=== PATIENT | male | born 1955 | race Caucasian/White ===

== ENCOUNTER 2018-09-25 05:34 | Inpatient (IN) | payer OTHER | END 2018-09-27 10:50 | disposition home or self-care (01) | LOC: PAS IN 05:34 → ORTHO 4S 10:50 | PROC: 0SRD0J9 Replacement of Left Knee Joint with Synthetic Substitute, Cemented, Open Approach (ICD-10-PCS; principal; 2018-09-25 07:01) | DX: M17.12 Unilateral primary osteoarthritis, left knee (principal) ==

== ENCOUNTER 2021-10-04 19:14 | Emergency (ER) | payer MEDICARE ==
[~2021-10-04] VITALS: Ht 185.4 cm; Wt 124.1 kg
[~2021-10-04 19:14] MED LIST: ASPI-1 PO
[2021-10-04 20:34] LABS: BASOPHILS # (AUTO) 0.1 X10'3 (0-0.2); BASOPHILS % (AUTO) 0.7 % (0-1); EOSINOPHILS # (AUTO) 0.1 X10'3 (0-0.9); EOSINOPHILS % (AUTO) 0.7 % (0-6); HEMATOCRIT 49.3 % (42.0-52.0); HEMOGLOBIN 16.2 g/dl (14.0-17.9); LYMPHOCYTES # (AUTO) 0.8 X10'3 (1.1-4.8); LYMPHOCYTES % (AUTO) 6.5 % (21-51); MEAN CORPUSCULAR HEMOGLOBIN 27.7 PG (27.0-31.0); MEAN CORPUSCULAR HGB CONC 32.9 g/dL (33.0-36.5); MEAN CORPUSCULAR VOLUME 84.1 FL (78-98); MONOCYTES # (AUTO) 1.1 X10'3 (0-0.9); MONOCYTES % (AUTO) 9.3 % (2-12); NEUTROPHILS # (AUTO) 9.8 X10'3 (1.8-7.7); NEUTROPHILS % (AUTO) 82.8 % (42-75); PLATELET COUNT 231 X10'3 (140-440); RED BLOOD COUNT 5.87 X10'6 (4.70-6.10); RED CELL DISTRIBUTION WIDTH 14.1 % (11.5-14.5); WHITE BLOOD COUNT 11.8 X10'3 (4.5-11.0)
[2021-10-04 21:08] LABS: ALANINE AMINOTRANSFERASE 32 U/L (12-78); ALKALINE PHOSPHATASE 87 IU/L (46-116); ANION GAP 13 (8-16); ASPARTATE AMINO TRANSFERASE 20 U/L (10-37); BILIRUBIN,TOTAL 0.9 MG/DL (0.1-1.0); BLOOD UREA NITROGEN 15 MG/DL (7-18); CALCIUM 9.1 MG/DL (8.5-10.1); CHLORIDE 100 MMOL/L (99-107); CREATININE 1.36 MG/DL (0.60-1.10); GLUCOSE 172 MG/DL (70-104); POTASSIUM 4.3 MMOL/L (3.5-5.1); SODIUM 136 MMOL/L (135-145); TOTAL CARBON DIOXIDE 23.4 MMOL/L (24-32); TOTAL PROTEIN 8.1 G/DL (6.4-8.2); eGFR 52 ML/MIN
[2021-10-04] MEDS ORDERED: normal saline 1000ml 1,000 ML IV ONE (22:45)
[2021-10-04] MEDS ORDERED: BENZ-38 PO (23:54)
[2021-10-04] MEDS ORDERED: SODI30SP3 BOTHNARES (23:54)
[2021-10-04] MEDS ORDERED: ALBU8HFA PO (23:54)
[2021-10-04 23:58] LABS: CLARITY,URINE CLEAR (Clear); COLOR,URINE YELLOW (Yellow); GLUCOSE, URINE NEGATIVE (Neg); KETONES,URINE NEGATIVE (Neg); LEUKOCYTE ESTERASE ,URINE NEGATIVE (Neg); NITRITES, URINE NEGATIVE (Neg); OCCULT BLOOD,URINE NEGATIVE (Neg); PH,URINE 6.5 (4.8-8.0); PROTEIN,URINE NEGATIVE (Neg)
[2021-10-05 00:03] LABS: UA COLLECTION TYPE NON-SPECIFIED
[2021-10-05 00:20] VITALS: BP 124/84
== END 2021-10-05 00:21 | disposition home or self-care (01) ==
LOC: ER 19:15
DX: J11.1 Influenza due to unidentified influenza virus with other respiratory manifestations (principal); Z20.822 Contact with and (suspected) exposure to COVID-19; I48.91 Unspecified atrial fibrillation; Z87.81 Personal history of (healed) traumatic fracture; Z88.8 Allergy status to other drugs, medicaments and biological substances; Z79.82 Long term (current) use of aspirin; Z79.899 Other long term (current) drug therapy
CPT/HCPCS: 36415; 71045; 80053; 81003; 83605; 83880; 84145; 84484; 85025; 87040; 87502; 87503; 87635; 93005; 96360; 99285; C9803; J7030

== ENCOUNTER 2024-09-28 08:32 | Inpatient (IN) | payer OTHER, MEDICARE ==
[~2024-09-28] VITALS: Ht 185.4 cm; Wt 123.3 kg
[~2024-09-28 08:32] MED LIST changes: +SODI30SP3 BOTHNARES
--- NOTE | 2024-09-28 09:19 | RADIOLOGY REPORT ---
CHEST RADIOGRAPH Indication: SOB Technique: Single frontal view of the chest was obtained COMPARISON: None FINDINGS: Lines and Tubes: None Lungs: Clear Pleura: No effusion. No pneumothorax. Cardiomediastinal contours: Unremarkable Bones: Unremarkable IMPRESSION: 1. No acute disease.
[2024-09-28 09:21] LABS: BASOPHILS # (AUTO) 0.1 X10'3 (0-0.2); BASOPHILS % (AUTO) 0.7 % (0-1); EOSINOPHILS # (AUTO) 0.1 X10'3 (0-0.9); EOSINOPHILS % (AUTO) 0.7 % (0-6); HEMATOCRIT 49.3 % (42.0-52.0); HEMOGLOBIN 16.4 g/dl (14.0-17.9); LYMPHOCYTES # (AUTO) 1.1 X10'3 (1.1-4.8); LYMPHOCYTES % (AUTO) 10.7 % (21-51); MEAN CORPUSCULAR HEMOGLOBIN 28.1 PG (27.0-31.0); MEAN CORPUSCULAR HGB CONC 33.3 g/dL (33.0-36.5); MEAN CORPUSCULAR VOLUME 84.4 FL (78-98); MEAN PLATELET VOLUME 9.7 FL (7.4-10.4); MONOCYTES # (AUTO) 1.3 X10'3 (0-0.9); MONOCYTES % (AUTO) 12.4 % (2-12); NEUTROPHILS # (AUTO) 8.1 X10'3 (1.8-7.7); NEUTROPHILS % (AUTO) 75.5 % (42-75); PLATELET COUNT 203 X10'3 (140-440); RED BLOOD COUNT 5.84 X10'6 (4.70-6.10); RED CELL DISTRIBUTION WIDTH 14.7 % (11.5-14.5); WHITE BLOOD COUNT 10.7 X10'3 (4.5-11.0)
[2024-09-28 09:25] LABS: ALBUMIN 3.7 G/DL (3.4-5.0); ANION GAP 10 (8-16); BLOOD UREA NITROGEN 15 MG/DL (7-18); BUN/CREATININE RATIO 12.7 (10.0-20.0); CALCIUM 8.8 MG/DL (8.5-10.1); CHLORIDE 101 MMOL/L (99-107); CREATININE 1.18 MG/DL (0.60-1.10); GLUCOSE 141 MG/DL (70-104); POTASSIUM 4.4 MMOL/L (3.5-5.1); SODIUM 136 MMOL/L (135-145); TOTAL CARBON DIOXIDE 25.4 MMOL/L (24-32); eCRCL 65 ML/MIN; eGFR 61 ML/MIN
--- NOTE | 2024-09-28 09:53 | ELECTROCARDIOGRAPH REPORT ---
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
--- NOTE | 2024-09-28 09:59 | Physician Documentation ---
History of Present Illness ~ Chief Complaint: Chest Pain Stated Complaint: MEDICATION REACTION Time Seen by MD: 09:09 Source: patient, family HPI 69-year-old male history of AFib on Xarelto presenting for 1 day of chest pain and weakness. He also reports dry cough. Medication Reconciliation Allergies: Coded Allergies: indomethacin (Verified Allergy, Intermediate, SLOWS HEART RATE, 10/04/21) Scheduled Aspirin (Aspirin), 325 MG PO Q24H@0830 Sodium Chloride (Saline Nasal [place]), 1 SPRAYS BOTHNARES Q6H Past Medical History Past Medical History: Atrial Fibrillation, Extremity Fracture Past Surgical History: orthopedic surgeries Lives with: Family Lives In: Home Review of Systems All Other Systems at this time: Reviewed and Negative Constitutional: Denies: fever Respiratory: Reports: cough; Denies: shortness of breath Cardiovascular: Reports: chest pain Gastrointestinal: Denies: abdominal pain Physical Exam Vital Signs: Temperature: 98.9, Source: Oral, Heart Rate: 116, Respiratory Rate: 20, BP: 125/73, Pulse Oximetry: 92, Weight: 123.300 Physical Exam Well-appearing no distress resting comfortably in bed Pulmonary clear to auscultation bilaterally Cardiac no murmur Abdomen is soft nontender Lower extremity no edema Neuro awake alert oriented Progress Progress Note I independently interpreted labs shows no troponin elevation Results/Orders Results/Orders Orders - BOBBY PHAM MD Chest,Single View (09/28/24 08:51) Culture Blood (09/28/24 08:51) Monitor (09/28/24 08:51) Oxygen (09/28/24 08:51) Saline Lock (09/28/24 08:51) Page Hospitalist (09/28/24 10:54) Fill Out Med Reconciliation (09/28/24 10:54) Completed Orders - BOBBY PHAM MD Chest,Single View (09/28/24 08:51) Cbc/Diff (09/28/24 08:51) Procalcitonin (09/28/24 08:51) BMP (09/28/24 08:51) Hs Troponin I W Calculations (09/28/24 08:51) Lacticsepsis (09/28/24 08:51) Electrocardiogram (09/28/24 09:48) PBNP (09/28/24 09:05) Metoprolol Tartrate Tablet (Lopressor Ta (09/28/24 11:05) Ua W/Microscopic, Cult If Ind (09/28/24 10:00) Metoprolol Tartrate Inj (Lopressor Iv) (09/28/24 11:40) Medications Received in ER Medications (Trade) Dose Ordered Sig/Leoan Route PRN Reason Start Time Stop Time Status Last Admin Dose Admin (Lopressor tablet) 50 mg ONCE ONCE PO 09/28/24 11:05 09/28/24 11:06 DC 09/28/24 11:58 50 MG (Lasix inj) 20 mg DAILY IV 09/28/24 11:55 09/28/24 12:52 20 MG Vital Signs 09/28/24 09/28/24 09/28/24 09/28/24 08:40 10:07 11:27 11:45 Temp 98.9 98.6 Pulse 116 98 123 Resp 20 18 18 18 B/P (MAP) 125/73 128/91 (103) 113/68 (83) Pulse Ox 92 98 96 O2 Flow Rate 0 0 09/28/24 11:50 Resp 20 B/P (MAP) Laboratory Tests Test 09/28/24 09:05 09/28/24 10:00 White Blood Count 10.7 Red Blood Count 5.84 Hemoglobin 16.4 Hematocrit 49.3 Mean Corpuscular Volume 84.4 Mean Corpuscular Hemoglobin 28.1 Mean Corpuscular Hemoglobin Concent 33.3 Red Cell Distribution Width 14.7 H Platelet Count 203 Mean Platelet Volume 9.7 Neutrophils (%) (Auto) 75.5 H Lymphocytes (%) (Auto) 10.7 L Monocytes (%) (Auto) 12.4 H Eosinophils (%) (Auto) 0.7 Basophils (%) (Auto) 0.7 Neutrophils # (Auto) 8.1 H Lymphocytes # (Auto) 1.1 Monocytes # (Auto) 1.3 H Eosinophils # (Auto) 0.1 Basophils # (Auto) 0.1 CBC Comment Sodium Level 136 Potassium Level 4.4 Chloride Level 101 Carbon Dioxide Level 25.4 Anion Gap 10 Blood Urea Nitrogen 15 Creatinine 1.18 H Estimated GFR/1.73 m2 61 BUN/Creatinine Ratio 12.7 Glucose Level 141 H Lactic Acid Level 1.3 Calcium Level 8.8 Troponin I High Sensitivity 10 Pro-B-Type Natriuretic Peptide 746 H Albumin 3.7 Procalcitonin 0.08 Chemistry Comments Urine Specimen Description Non-specified Urine Color Straw Urine Clarity Clear Urine pH 7.0 Urine Specific [place] <=1.005 Urine Protein Negative Urine Glucose (UA) >=1000 H Urine Ketones Negative Urine Occult Blood Negative Urine Nitrite Negative Urine Bilirubin Negative Urine Urobilinogen 2.0 H Urine Leukocyte Esterase Negative Urine RBC 0-2 Urine WBC None seen Urine Squamous Epithelial Cells None seen Urine Bacteria None seen Urine Mucus None seen Urine Culture Indicated Not ind Volume Urine Centrifuged 10 ml Urine Comment Microbiology Date/Time Source Procedure Growth Status 09/28/24 09:05 Blood Hand Left Blood Culture - Preliminary NEGATIVE (LESS THAN 24 HOURS) Resulted EKG/XRAY/CT/US/VASC/MRI EKG : Additional Comment EKG independently interpreted by myself time 9:51 a.m. indication chest pain atrial fibrillation rate 107 normal axis normal intervals no ST or T-wave abnormalities Chest X-Ray : Additional Comments I independently interpreted chest x-ray no pneumothorax no consolidation normal cardiomediastinal silhouette Heart Score: Heart Score Response (Comments) Value History Moderate Suspicious 1 EKG Normal 0 Age >65 2 Risk Factors 1 or 2 risk factors 1 Troponin Normal limit 0 Total 4 Medical Decision Making Additional info obtained from: family Findings Discharge summary 09/2018 reviewed Additional Information CHF, atrial fibrillation, chest pain Departure Disposition: ADMITTED INPATIENT Admitted to Inpatient Unit: to hospitalist Impression: Primary Impression: Chest pain Qualified Codes: R07.9 - Chest pain, unspecified Additional Impression: Atrial fibrillation, rapid Referrals: NO PRIMARY CARE PROVIDER (PCP) Critical Care Note Total Time (mins): 30 Critical Care Note The very real possibility of a deterioration of this patient's condition required the highest level of my preparedness for sudden, emergent intervention. I provided critical care services, which included medication orders, frequent reevaluations of the patient's condition and response to treatment, ordering and reviewing test results, and discussing the case with various consultants. Excludes time spent performing separately billable procedures. The critical care time associated with the care of the patient was 30 minutes in the management of AFib RVR requiring medication Signature Scribe Signature: na Attestation: BOBBY Grimes MD September 28, 2024 09:59
[2024-09-28 10:27] LABS: PRO BRAIN NATRIURETIC PEPTIDE 746 PG/ML (0-125)
[2024-09-28 11:05] LABS: BILIRUBIN,URINE NEGATIVE (Neg); CLARITY,URINE CLEAR (Clear); COLOR,URINE STRAW (Yellow); GLUCOSE, URINE >=1000 mg/dl (Neg); KETONES,URINE NEGATIVE (Neg); LEUKOCYTE ESTERASE ,URINE NEGATIVE (Neg); NITRITES, URINE NEGATIVE (Neg); OCCULT BLOOD,URINE NEGATIVE (Neg); PROTEIN,URINE NEGATIVE (Neg)
[2024-09-28 11:06] LABS: UA COLLECTION TYPE NON-SPECIFIED
[2024-09-28 11:20] LABS: BACTERIA,URINE NONE SEEN /HPF (Neg); MUCUS STRANDS NONE SEEN /LPF (Neg); RBC,URINE 0-2 /HPF (0-2); SQUAMOUS EPITHELIAL CELL,UR NONE SEEN /LPF (FEW); WBC,URINE NONE SEEN /HPF (0-4)
[2024-09-28] MEDS ORDERED: metoprolol tartrate 1mg/ml inj IV ONE (11:40)
[2024-09-28] MEDS ORDERED: magnesium hydroxide 30ml (MOM) UD suspension PO PRN (11:55)
[2024-09-28] MEDS ORDERED: morphine 2 MG/ML inj. syringe IV PRN ×2 (11:55)
[2024-09-28] MEDS ORDERED: ondansetron/PF 4mg/2ml inj IV PRN (11:55)
[2024-09-28] MEDS ORDERED: acetaminophen 325mg tablet PO PRN (11:55)
[2024-09-28] MEDS ORDERED: mag hydrox/Alum hydrox/simeth 30ml oral suspension PO PRN (11:55)
[2024-09-28] MEDS: metoprolol tartrate 50mg tablet PO ONE (11:58)
--- NOTE | 2024-09-28 12:01 | HISTORY AND PHYSICAL ---
History & Physical Providers to CC ~ History of Present Illness Reason for Admit\Complaint: Coughing and chest tightness History of Present Illness This is a 69 years old male who comes in complaining increased cough over the past 24-48 hours. with some chest tightness; patient stated that he started taking Flomax three days back and he felt well the 1st day; a 2nd day he felt very sluggish and without energy; he noticed increased coughing which is a dry cough; denies any chest pain did have some chest tightness; denies any fever chills; denies shortness of breaths or worsening of the cough when he lays down in bed and he denies any orthopnea or PND; he denies any shortness of breath on exertion Allergies: Coded Allergies: indomethacin (Verified Allergy, Intermediate, SLOWS HEART RATE, 10/04/21) Home Medications Home Medications Active Saline Nasal [place] (Sodium Chloride) 30 Ml [place] 1 Sprays BOTHNARES Q6H 7 Days Aspirin 325 Mg Tablet 325 Mg PO Q24H@0830 Past Medical History Past Medical History Paroxysmal atrial fibrillation Diabetes mellitus type 2 Past Surgical History Surgical History Comment Multiple orthopedic surgeries including three left shoulder surgeries 2 left knee replacements Ankle surgery Past Social History Social History Comment Family history-no coronary disease or diabetes Social history-no alcohol or tobacco ROS ROS A 10 point review of system was done with pertinent positives and negatives in the history of present illness Exam Vitals: Vital Signs Date Time Temp Pulse Resp B/P (MAP) Pulse Ox O2 Delivery O2 Flow Rate FiO2 09/28/24 11:45 123 18 113/68 (83) 96 0 09/28/24 10:07 98.6 General: Patient is sitting up in bed in nonacute distress HEENT normal oral mucosa no JVD no palpable firm palpable thyroid eyes with PERRLA Lungs with normal bilateral entry no crackles no wheezing Heart irregularly irregular tachycardic S1-S2 no murmurs Abdomen is soft obese nontender bowel sounds are present Extremities no edema plus two pulses Awake and alert motor and sensory intact Diagnostic Data Last Recorded Lab Results: 09/28/2490409/28/24904 Advance Care Planning Advanced Care plannin - 30 Minutes Additional Plan Patient presented to the hospital with lack of energy associated with couple of days of dry cough and chest tightness Possible acute on chronic heart failure; BNP mildly elevated 700s; try the Lasix History of AFib presenting with some tachycardia/AFib with RVR; continue his metoprolol History of diabetes mellitus type 2 on metformin Per discussion with the patient he is a full code; he is admit as an inpatient Date of Service: September 28, 2024 Billing Provider: JAYME HILL MD Common Visit Codes: 84291-PWIPFRE INP/OBS CARE (HIGH) Secondary Visit Codes: 97200-OIGESTRP CARE PLAN 30 MINUTES JAYME HILL MD September 28, 2024 12:01
[2024-09-28 12:46] LABS: BILIRUBIN,URINE NEGATIVE (Neg); CLARITY,URINE CLEAR (Clear); COLOR,URINE STRAW (Yellow); GLUCOSE, URINE >=1000 mg/dl (Neg); KETONES,URINE NEGATIVE (Neg); LEUKOCYTE ESTERASE ,URINE NEGATIVE (Neg); NITRITES, URINE NEGATIVE (Neg); OCCULT BLOOD,URINE NEGATIVE (Neg); PROTEIN,URINE NEGATIVE (Neg)
[2024-09-28 12:48] LABS: UA COLLECTION TYPE URINAL
[2024-09-28] MEDS: furosemide 20 MG/2 ML vial IV SCH (12:52)
[2024-09-28 12:54] LABS: BACTERIA,URINE NONE SEEN /HPF (Neg); MUCUS STRANDS NONE SEEN /LPF (Neg); RBC,URINE NONE SEEN /HPF (0-2); SQUAMOUS EPITHELIAL CELL,UR FEW /LPF (FEW); WBC,URINE NONE SEEN /HPF (0-4)
[2024-09-28] MEDS ORDERED: METF-1203 PO (12:59)
[2024-09-28] MEDS ORDERED: METO50TA16 PO (12:59)
[2024-09-28] MEDS ORDERED: TAMS-55 PO (12:59)
[2024-09-28 18:00] VITALS: BP 119/74; PULSE 105; RESP 20; TEMP 98.4; O2SAT 94
[2024-09-28] MEDS: acetaminophen 325mg tablet PO PRN (19:27)
[2024-09-28 20:00] VITALS: RESP 20; O2SAT 94
[2024-09-28] MEDS: docusate sod 100mg capsule PO SCH (20:00)
[2024-09-28] MEDS ORDERED: ATOR20TA PO (20:02)
[2024-09-28] MEDS ORDERED: LISI20TA28 PO (20:05)
[2024-09-28] MEDS ORDERED: RIVA20TA PO (20:06)
[2024-09-28] MEDS ORDERED: EMPA10TA PO (20:08)
[2024-09-28] MEDS ORDERED: CHOL400T8 PO (20:11)
[2024-09-28] MEDS ORDERED: dextrose 50%-water 50ml dispensing syringe IV PRN ×2 (20:25)
[2024-09-28] MEDS ORDERED: glucagon, human recombinant 1mg kit SUBCUT PRN (20:25)
[2024-09-28] MEDS ORDERED: DEXTROSE 15 GM of carb/4 tabs (each vial/BOTTLE has 4 tablets) PO PRN ×2 (20:25)
[2024-09-28 20:42] LABS: HEMOGLOBIN A1C 6.2 % (4.5-6.2)
[2024-09-28] MEDS: rivaroxaban 20mg tablet PO SCH (21:00)
[2024-09-28] MEDS: tamsulosin 0.4mg capsule PO SCH (21:00)
[2024-09-28] MEDS: INSULIN LISPRO 100 UNIT/ML INSULN.PEN MULTI-DOSE SQ SCH (21:00)
[2024-09-28 22:00] VITALS: BP 114/77; PULSE 97; RESP 16; TEMP 98; O2SAT 95
[2024-09-29 02:00] VITALS: BP 112/64; PULSE 80; RESP 18; TEMP 98.7; O2SAT 96
[2024-09-29 06:28] LABS: BASOPHILS # (AUTO) 0.1 X10'3 (0-0.2); BASOPHILS % (AUTO) 0.7 % (0-1); EOSINOPHILS # (AUTO) 0.2 X10'3 (0-0.9); EOSINOPHILS % (AUTO) 2.2 % (0-6); HEMOGLOBIN 16.1 g/dl (14.0-17.9); LYMPHOCYTES # (AUTO) 1.3 X10'3 (1.1-4.8); LYMPHOCYTES % (AUTO) 14.2 % (21-51); MEAN CORPUSCULAR HEMOGLOBIN 28.4 PG (27.0-31.0); MEAN CORPUSCULAR HGB CONC 33.6 g/dL (33.0-36.5); MEAN CORPUSCULAR VOLUME 84.6 FL (78-98); MONOCYTES # (AUTO) 1.6 X10'3 (0-0.9); MONOCYTES % (AUTO) 17.3 % (2-12); NEUTROPHILS # (AUTO) 6.1 X10'3 (1.8-7.7); NEUTROPHILS % (AUTO) 65.6 % (42-75); PLATELET COUNT 182 X10'3 (140-440); RED BLOOD COUNT 5.67 X10'6 (4.70-6.10); RED CELL DISTRIBUTION WIDTH 14.9 % (11.5-14.5); WHITE BLOOD COUNT 9.2 X10'3 (4.5-11.0)
[2024-09-29 06:54] LABS: ALBUMIN 3.5 G/DL (3.4-5.0); ANION GAP 6 (8-16); BLOOD UREA NITROGEN 20 MG/DL (7-18); BUN/CREATININE RATIO 15.5 (10.0-20.0); CALCIUM 9.1 MG/DL (8.5-10.1); CHLORIDE 100 MMOL/L (99-107); CREATININE 1.29 MG/DL (0.60-1.10); GLUCOSE 125 MG/DL (70-104); POTASSIUM 4.7 MMOL/L (3.5-5.1); SODIUM 137 MMOL/L (135-145); TOTAL CARBON DIOXIDE 30.9 MMOL/L (24-32); eCRCL 59 ML/MIN; eGFR 55 ML/MIN
[2024-09-29 07:00] VITALS: BP 126/73; PULSE 108; RESP 18; TEMP 97.4; O2SAT 94
[2024-09-29] MEDS: atorvastatin 20mg tablet PO SCH (08:47)
[2024-09-29] MEDS: lisinopril 20mg tablet PO SCH (08:48)
[2024-09-29] MEDS: cholecalciferol (vitamin D3) 400 unit (10mcg) tablet PO SCH (08:48)
[2024-09-29 08:49] VITALS: BP_SYST 126; PULSE 108
[2024-09-29] MEDS: metoprolol tartrate 25mg tablet PO SCH (08:49)
[2024-09-29] MEDS ORDERED: FURO-150 PO (09:21)
[2024-09-29 10:42] LABS: PLATELET ESTIMATE NORMAL; TOTAL CELLS COUNTED 100
--- NOTE | 2024-09-29 19:05 | CARDIOLOGY REPORT ---
APPROVED REPORT EXAM: Comprehensive 2D, Doppler, and color-flow Echocardiogram. Patient Location: [address] Blood Pressure: 126/73 mmHg Heart Rate: 94-108 bpm Rhythm: Irregularly Irregular Indications Congestive Heart Failure Medication Reaction Diabetes Mellitus II Elevated ProBNP (700's) Supervisor Stone: Frank Howard MD Previous echo: None available 2D Dimensions RVDd 4.6 cm LA Diam4.3 cm IVSd 0.9 (0.7-1.1cm) LVDd 5.7 cm PWd 0.9 (0.7-1.1cm) IVSs 1.3 (0.8-1.2cm) RA Minor4.4 cmLVDs 4.2 (2.5-4.0cm) PWs 1.3 (0.8-1.2cm) LVOT Diameter 2.02 (1.8-2.4cm) LVEF(%) 50.3 (>50%) IVC 23.57 mm FS (%) 25.9 % SV 79.6 ml CO 7.6 L/min M-Mode Dimensions RVDd 3.84 (2.1-3.2cm) Left Atrium(MM) 4.42 (2.5-4.0cm) Aortic Root 3.34 (2.2-3.7cm) Aortic Cusp Exc 2.11 (1.5-2.0cm) LVEF(%) 53 (>50%) Aortic Valve AoV Peak Isaias. 139.3 cm/s AoV VTI 24.9 cm AO Peak GR. 7.8 mmHg AO Mean GR. 5 mmHg LVOT VTI 22.89 cm LVOT Peak Isaias. 120.7 cm/s JOSE(VTI)/BSA 2.94 cm2/m2 JOSE (VTI) 2.94 cm2 Mitral Valve MV Peak Gr. 3 mmHg MV Mean Gr. 1 mmHg MV VMax90.3 cm/sMV VMean56.4 cm/s MVA VTI3.78 cm2MV VTI19.4 cm Tricuspid Valve TR P. Velocity 231 cm/s RAP ESTIMATE 10 mmHg TR Peak Gr. 21 mmHg RVSP 31 mmHg Pulmonary Vein S1 Velocity 27.0 cm/s D2 Velocity 32.6 cm/s PVa Daxpzejd50.6 cm/s PVa [id number] msec LEFT VENTRICLE Normal LV size with mildly reduced function. Mild concentric hypertrophy. Overall LVEF is 50-55%. RIGHT VENTRICLE Right ventricle is moderate to severely dilated with reduced systolic function. Estimated PA systolic pressure is 36 mmHg. ATRIA Left atrium is mildly dilated. Right atrium is mildly dilated. AORTIC VALVE Trileaflet AV appears sclerotic without stenosis or insufficiency. MITRAL VALVE Mild MV annular calcification without stenosis. Trace regurgitation. TRICUSPID VALVE TV appears structurally normal with trace regurgitation. PULMONIC VALVE PV appears structurally normal with trace regurgitation. GREAT VESSELS The aortic root is normal in size. IVC is dilated and collapses less than 50% with inspiration. PERICARDIUM Normal pericardium. No pericardial effusion seen. Other Information Study Quality: Fair. TDS due to body habitus. Conclusion Normal LV size with mildly reduced function. Mild concentric hypertrophy. Overall LVEF is 50-55%. Right ventricle is moderate to severely dilated with reduced systolic function. Estimated PA systolic pressure is 36 mmHg. Left atrium is mildly dilated. Right atrium is mildly dilated. Trileaflet AV appears sclerotic without stenosis or insufficiency. Mild MV annular calcification without stenosis. Trace regurgitation. TV appears structurally normal with trace regurgitation. PV appears structurally normal with trace regurgitation. Normal pericardium. No pericardial effusion seen.
--- NOTE | 2024-09-30 15:27 | DISCHARGE SUMMARY-Residence ---
Discharge Summary Providers to CC Resident Creating Document: JERICA RG RES ~ Discharge Summary Admission Diagnosis: chf, afib Hospital Course DATE OF ADMISSION: 09/28/24 DATE OF DISCHARGE: 09/29/24 As in HPI: This is a 69 years old male who comes in complaining increased cough over the past 24-48 hours. with some chest tightness; patient stated that he started taking Flomax three days back and he felt well the 1st day; a 2nd day he felt very sluggish and without energy; he noticed increased coughing which is a dry cough; denies any chest pain did have some chest tightness; denies any fever chills; denies shortness of breaths or worsening of the cough when he lays down in bed and he denies any orthopnea or PND; he denies any shortness of breath on exertion His echocardiogram showed LVEF 50-55%, LV mildly reduced function, elevated PA systolic pressure 36 mmHg, right ventricle moderate to severely dilated with reduced systolic function, left atrium mildly dilated and I would atrium mildly dilated. His symptoms improved with Lasix and so likely had mild acute HFpEF. ProBNP elevated as well. His symptoms improved sooner than expected and so dis charged on low-dose Lasix. General: Alert and oriented x 4 HEENT: Normocephalic and atraumatic. Pupils equal round and reactive to light and accommodation. Extraocular movements intact. Oral and nasal mucosa moist Neck: Trachea is in midline. No masses or JVD Lungs: Bilateral normal breath sounds. No crackles, rhonchi or wheezes Heart: Irregularly rhythm. Tachycardic. No rubs or murmurs Abdomen: Soft, nontender and nondistended. 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 Patient seen, examined and treatment plan by Dr. Hill. Jerica Rg MD Internal Medicine Resident, PGY 2 Discharge Diagnosis\Comment: AFib with a RVR Acute on chronic HFpEF Diabetes mellitus type 2 Operations\Procedures: None Consultants: None Complications: None Condition on DC: Stable New Medications: Furosemide (Lasix) 20 Mg Tablet 20 MG PO DAILY, #30 TAB Continued Medications: Atorvastatin Calcium* (Lipitor*) 20 Mg Tablet 1 TAB PO DAILY for 30 Days, #30 TAB Cholecalciferol (Vitamin D) 400 Unit Tablet 1 TAB PO DAILY for 30 Days, #30 TAB 0 Refills Empagliflozin (Jardiance) 10 Mg Tablet 1 TAB PO DAILY for 30 Days, #30 TAB 0 Refills Lisinopril (Lisinopril) 20 Mg Tablet 1 TAB PO DAILY, #30 TAB Metformin HCl (Metformin HCl) 500 Mg Tablet 1 TAB PO HS, TAB Metoprolol Tartrate (Metoprolol Tartrate) 50 Mg Tablet 0.5 TAB PO DAILY, TAB Rivaroxaban (Xarelto) 20 Mg Tablet 1 TAB PO HS for 30 Days, #30 TAB 0 Refills with food Tamsulosin Hcl* (Flomax*) 0.4 Mg Cap.sr.24h 1 CAP PO HS, CAP Discharge Summary: As above *Problems/Diagnosis: (1) Heart failure with preserved ejection fraction Total Time Spent on D/C: > 30 Minutes Date of Service: September 30, 2024 Billing Provider: JAYME HILL MD Common Visit Codes: 43155-JGB/OBS DISCH DAY >30min JERICA RG RES September 30, 2024 15:25 JAYME HILL MD September 30, 2024 21:38
== END 2024-09-29 11:33 | disposition home or self-care (01) | DRG 293 ==
LOC: ER 08:33 → ED HOLD 11:55 → PCU 3S 13:30
PROVIDERS: ADMIT Internal Medicine; ATTEND Internal Medicine
DX: I50.33 Acute on chronic diastolic (congestive) heart failure (principal); E11.9 Type 2 diabetes mellitus without complications; I48.0 Paroxysmal atrial fibrillation; Z88.8 Allergy status to other drugs, medicaments and biological substances
CPT/HCPCS: 36415; 71045; 80048; 81001; 82948; 83036; 83605; 83880; 84145; 84484; 85007; 85025; 87040; 87081; 93005; 93306; 99291; G0378; J1815; J1938